=== PATIENT | female | born 1995 | race Caucasian/White ===

== ENCOUNTER 2016-12-14 23:40 | Inpatient (IN) ==
--- OUTSIDE RECORDS SUMMARY | 2016-12-14 23:48 | External Medical Summary | Continuity of Care Document ---
:1995 Author Organization [facility] Allergies Active Description Code Type Severity Reaction Onset Reported/ Identified Relationship Clinical to Patient Status Yes No Known [id number] N/A N/A Drug 0 Allergies Medications Problems Date Dx Coded Attending Type Code Diagnosis Diagnosed By 09/05/2016 Cece Gaona O09.31 Suprvsn of preg w insufficient antenat care, first trimester 09/05/2016 Cece Gaona Z3A.01 Less than 8 weeks gestation of 10/26/2016 Cece Gaona O09.33 Suprvsn of preg w insufficient antenat care, third trimester 10/26/2016 Cece Gaona O43.193 Other malformation of placenta, third trimester 10/26/2016 Cece Gaona Z3A.32 32 weeks gestation of Procedures Code [place] [address] Ultrasnd exam of preg uterus, compl 09/05/2016 15879 Ultrasnd exam, preg uterus, limited 10/26/2016 Results Encounters ACCT Visit Discharge Status Pt. Type Provider Facility Loc./Unit Complaint No. Date/Time [id number] 11/06/2013 11/06/2013 [facility] Emergency [id number] 13:32:00 17:20:00
[2016-12-15] MEDS ORDERED: LIDOCAINE 1% (10mg/ml) 2mL INJ PF SDV ID PRN (00:02)
[2016-12-15] MEDS ORDERED: CALCIUM CARBONATE Chewable 500mg TABLET PO PRN ×2 (00:02→06:11)
[2016-12-15] MEDS ORDERED: MAG-AL + SIM ORAL LIQUID 30ml PO PRN ×2 (00:02→06:11)
[2016-12-15] MEDS ORDERED: ACETAMINOPHEN 500 MG TABLET PO PRN ×2 (00:02→06:11)
[2016-12-15] MEDS ORDERED: METHYLERGONOVINE 0.2 MG/ML INJECTION IM PRN (00:02)
[2016-12-15] MEDS ORDERED: CARBOPROST 250 MCG/ML INJECTION IM PRN (00:02)
[2016-12-15] MEDS: LR 1,000 ML IV PRN ×2 (00:26→01:52)
[2016-12-15 00:44] VITALS: RESP 16
[2016-12-15] MEDS ORDERED: ROPIVACAINE 1% 10MG/ML INJ 200 MG, SUFentanil 50 MCG in NS 100 ML EPI PRN (01:06)
[2016-12-15] MEDS ORDERED: NALOXONE 0.4 MG/ML INJECTION IVP PRN (01:06)
[2016-12-15] MEDS ORDERED: DiphenhydrAMINE 50 MG/ML INJECTION IVP PRN (01:06)
[2016-12-15] MEDS ORDERED: ONDANSETRON 4 MG/2 ML INJECTION IVP PRN (01:06)
--- NOTE | 2016-12-15 01:10 | Anesthesia Preoperative Report ---
Anesthesia Epidural/Spinal Rec - Date and Time Date: 12/15/16 Preoperative Diagnosis: Procedure: Labor Epidural - Vital Signs Vital Signs: Temperature 97.1 F 12/15/16 00:38 Pulse Rate 97 12/15/16 00:38 Respiratory Rate 16 12/15/16 00:38 Blood Pressure 135/80 12/15/16 00:38 Pulse Oximetry 100 12/15/16 00:38 Oxygen Delivery Method Room Air NPO since: 1800 /Para: P:0 - Medictaions & Allergies Inpatient Medications: Current Medications Acetaminophen (Tylenol) 500 - 1,000 mg PO Q4H PRN PRN Reason: Pain Al Hydroxide/Mg Hydroxide (Maalox Plus) 30 ml PO Q3H PRN PRN Reason: Indigestion Calcium Carbonate (Tums) 500 - 1,000 mg PO Q2H PRN PRN Reason: Indigestion Carboprost Tromethamine (Hemabate) 250 mcg IM O PRN PRN Reason: .Downtime Diphenhydramine HCl (Benadryl) 25 - 50 mg IVP Q3H PRN PRN Reason: Itching Lactated Ringer's (Lactated Ringers) 1,000 mls @ 1,000 mls/hr IV .Q1H PRN PRN Reason: as directed Last Admin: 12/15/16 00:26 Dose: 1,000 mls/hr Ropivacaine 200 mg/ Sufentanil Citrate 50 mcg/ Sodium Chloride 121 mls @ 8 mls/ hr EPI PRN PRN PRN Reason: Protocol Lidocaine HCl (Xylocaine-Mpf 1% Vial) 0.2 mg ID O PRN PRN Reason: IV Start Methylergonovine Maleate (Methergine) 0.2 mg IM O PRN Misoprostol (Cytotec) [address] ONCE PRN Naloxone HCl (Narcan) 0.1 mg IVP Q2M PRN PRN Reason: Respiratory distress Ondansetron HCl (Zofran) 4 mg IVP Q6H PRN PRN Reason: Nausea &/or vomiting Allergies/Adverse Reactions: Allergies Allergy/AdvReac Type Severity Reaction Status Date / Time No Known Allergies Allergy Verified 12/06/16 11:57 - Home Medications Home Medications: Home Medications Medication Instructions Recorded Confirmed Type Ferrous Sulfate 65 mg PO 12/06/16 History Vitamins 12/06/16 History - Surgical History Anesthesia Reactions: None Hx Family Anesthesia Reaction: No History of Motion Sickness: No - Social History Smoking Status: Never smoker Second Hand Exposure: No Substance Use Type: does not use Alcohol Intake Frequency: does not drink - Pertinent Findings Lab Data: CBC and BMP 12/15/16 00:23 EKG Rhythm: Normal Sinus Rhythm - Physical Exam Respiratory Exam: lungs clear Cardiovascular Exam: regular rate and rhythm - Airway Assessment Mallampati Score: II TMD: 3 Fingerbreadths Neck Extension: good Overall Assessment: may be difficult intubation - ASA ASA Score: 2 - Discussion Discussion: Discussed risks/options/alternatives of anesthesia and questions answered. Patient consents. Nursing pain assessment noted. Anesthesia Discussion: parent Attestation Statement: Prior to the delivery of any anesthetic medication, I examined the patient, developed the plan, obtained the patient's consent and discussed the risk and benefits of the procedure with the patient/guardian.
[2016-12-15 01:59] VITALS: BMI 24.1
[2016-12-15] MEDS ORDERED: SALINE FLUSH 10ml SYRINGE IVF PRN (06:11)
[2016-12-15] MEDS ORDERED: DiphenhydrAMINE 25 MG CAPSULE PO PRN (06:11)
[2016-12-15] MEDS ORDERED: HYDROCORTISONE 2.5% CREAM 30gm RECTALLY PRN (06:11)
[2016-12-15] MEDS ORDERED: OXYTOCIN DRIP 30 UNIT/500 ML ML IV PRN (06:11)
[2016-12-15] MEDS ORDERED: IBUPROFEN 800 MG TABLET PO SCH (06:11)
[2016-12-15] MEDS ORDERED: OXYTOCIN DRIP 30 UNIT/500 ML ML IV SCH (06:11)
[2016-12-15] MEDS ORDERED: MEASLES-MUMPS-RUBELLA VACCINE 0.5ml INJECTION SQ ONE (06:11)
[2016-12-15] MEDS ORDERED: FERROUS SULFATE 324 MG TABLET PO SCH (08:00)
[2016-12-15] MEDS ORDERED: PRENATAL VITAMIN TABLET PO SCH ×2 (09:00)
--- NOTE | 2016-12-15 10:02 | Labor and Delivery Note ---
DATE: 12/15/2016 Ms. Xavier progressed very well in first stage of labor. She pushed with excellent effort for over a little over an hour and then delivered the head in the OA presentation. Baby was bulb suctioned on the perineum. There was no evidence of nuchal cord. With two further pushes she delivered the baby in total. Baby was then further bulb suctioned and placed on mother's abdomen. After about 2 minutes the cord was doubly clamped and cut. This was a liveborn male with Apgars of 9/9, weight has not yet been obtained as baby is still in skin to skin contact with mother. After a few moments the placenta delivered spontaneously intact. It had a normal configuration and normal- appearing three-vessel cord. There was a spontaneous midline laceration, second degree, and this repaired in the usual fashion with 2-0 Monocryl. There were bilateral periurethral lacerations that were hemostatic and were not repaired. I performed a vaginal sweep. Total blood loss was approximately 300 cc. At the time of this dictation, mother and baby are doing well. REBECCA
[2016-12-15] MEDS: DOCUSATE CALCIUM 240 MG CAPSULE PO SCH (10:29)
[2016-12-15] MEDS: IBUPROFEN 800 MG TABLET PO SCH ×2 (16:05→23:16)
--- NOTE | 2016-12-15 16:20 | Anesthesia Postoperative Note ---
- Date and Time Date: 12/15/16 Time: 16:19 - Status Patient Participated in Evaluation: Patient Participated in Person Vital Signs: Temperature 97.1 F 12/15/16 00:38 Pulse Rate 87 12/15/16 08:55 Respiratory Rate 16 12/15/16 08:55 Blood Pressure 111/61 12/15/16 08:55 Pulse Oximetry 99 12/15/16 08:55 Oxygen Delivery Method Room Air Respiratory Function: Airway Patent Cardiovascular Function: Regular Pulse Mental Status: Alert and Oriented Pain Intensity: 0 Hydration: Taking PO Fluids Complications During Recover: None Apparent - Follow-Up Instructions Instructions: Per Surgeon
--- NOTE | 2016-12-15 17:02 | Progress Note ---
OB PP Progress Note Free Text - Date Date: 12/15/16 - Progress Note Progress Note: No complaints. AVSS Abd-NT, fundus firm Stable Plan routine care.
[2016-12-15] MEDS: HYDROCODONE/APAP 5mg/325mg TABLET PO PRN ×2 (17:51→22:29)
[2016-12-16 04:14] VITALS: BP 116/75; PULSE 65; TEMP 97.9; O2SAT 100
--- NOTE | 2016-12-16 09:34 | Discharge Instructions ---
Discharge Plan - Med Rec/Dispo Prescriptions: New Ibuprofen [Motrin] 800 mg PO Q8H #30 tablet Docusate Calcium [Surfak] 240 mg PO DAILY #30 capsule Hydrocodone/APAP 5/325 [[place] 5/325] 1 - 2 tab PO Q4H PRN #20 tablet PRN Reason: Pain No Action Ferrous Sulfate 65 mg PO DAILY Vitamins 1 tab PO DAILY
[2016-12-16] MEDS: IBUPROFEN 800 MG TABLET PO SCH (11:32)
[2016-12-16] MEDS: DOCUSATE CALCIUM 240 MG CAPSULE PO SCH (11:32)
[2016-12-16] MEDS: HYDROCODONE/APAP 5mg/325mg TABLET PO PRN (11:33)
== END 2016-12-16 13:00 | disposition home or self-care (01) | DRG 775 ==
LOC: MC 23:40 → OBOBS 23:40 → MC 12-15 00:35
PROVIDERS: ADMIT Obstetrics & Gynecology; ATTEND Obstetrics & Gynecology